=== PATIENT | female | born 1940 | race Caucasian/White ===

== ENCOUNTER → 2016-03-25 | Outpatient (CLI) | payer BC ==
[~2016-03-25] MED LIST: ASPEC81 PO; LPT40 PO; LSN20 PO; NTRSLP4 SL; PLV75 PO; TPRSR25 PO
[2016-03-25 12:15] LABS: BASO % 0.2 %; BASO ABS # 0.02 K/uL (0-0.2); COMPLETE YES; EOS % 2.5 %; HEMATOCRIT 37.9 % (37-47); IG% 0.2 %; LYMPH % 32.8 %; LYMPH ABS # 2.67 K/uL (1.2-3.4); MEAN CELL VOLUME 93.8 fL (80-100); MEAN CORPUSCULAR HEMOGLOBIN 31.4 pg (25-34); MEAN CORPUSCULAR HGB CONC 33.5 g/dl (32-36); MEAN PLATELET VOLUME 9.7 fL (7.4-10.4); MONO % 6.9 %; NEUT % 57.4 %; PLATELET COUNT 257 K/uL (130-400); RED BLOOD COUNT 4.04 M/uL (4.2-5.4); WHITE BLOOD COUNT 8.14 K/uL (4.8-10.8)
[2016-03-25 12:28] LABS: ALT/SGPT 20 U/L (12-78); BLOOD UREA NITROGEN 19 mg/dl (7-18); BUN/CREATININE RATIO 26.4 (10-20); CALCIUM 9.1 mg/dl (8.5-10.1); CARBON DIOXIDE 24 mmol/L (21-32); CHLORIDE 109 mmol/L (98-107); CHOLESTEROL 171 mg/dl (0-200); CREATININE 0.72 mg/dl (0.60-1.20); GLUCOSE 91 mg/dl (70-99); POTASSIUM 4.3 mmol/L (3.5-5.1); SODIUM 144 mmol/L (136-145)
[2016-03-25 12:38] LABS: ALB/GLOB RATIO 1.1 (0.9-2); ALKALINE PHOSPHATASE 97 U/L (45-117); AST/SGOT 14 U/L (15-37); CHOLESTEROL/HDL RATIO 2.9; HDL CHOLESTEROL 58 mg/dl; LDL CHOLESTEROL CALCULATED 97 mg/dl; TRIGLYCERIDES 78 mg/dl (0-150); VERY LOW DENSITY LIPOPROT CALC 16 mg/dl
== END | disposition home or self-care (01) ==
LOC: C.LAB1850 10:20
PROVIDERS: ATTEND Internal Medicine Cardiovascular Disease
DX: I10 Essential (primary) hypertension (principal)

== ENCOUNTER → 2016-04-29 | Outpatient (CLI) | payer BC | END | disposition home or self-care (01) | LOC: C.PAPS 09:58 | PROVIDERS: ATTEND Obstetrics & Gynecology | DX: Z01.419 Encounter for gynecological examination (general) (routine) without abnormal findings (principal); Z78.0 Asymptomatic menopausal state; N95.2 Postmenopausal atrophic vaginitis ==

== ENCOUNTER → 2017-05-10 | Outpatient (CLI) | payer BC ==
[2017-05-10 09:28] LABS: BASO % 0.5 %; BASO ABS # 0.04 K/uL (0-0.2); EOS % 2.4 %; EOS ABS # 0.19 K/uL (0-0.5); HEMATOCRIT 36.1 % (37-47); HEMOGLOBIN 12.1 g/dL (12.0-16.0); IG# 0.04 K/uL (0.00-0.02); LYMPH % 37.7 %; LYMPH ABS # 2.99 K/uL (1.2-3.4); MEAN CELL VOLUME 93.3 fL (80-100); MEAN CORPUSCULAR HEMOGLOBIN 31.3 pg (25-34); MEAN CORPUSCULAR HGB CONC 33.5 g/dl (32-36); MEAN PLATELET VOLUME 9.2 fL (7.4-10.4); MONO % 6.9 %; MONO ABS # 0.55 K/uL (0.11-0.59); NEUT ABS # 4.12 K/uL (1.4-6.5); PLATELET COUNT 321 K/uL (130-400); RED CELL DISTRIBUTION WIDTH CV 14.6 % (11.5-14.5); RED CELL DISTRIBUTION WIDTH SD 49.4 fL (36.4-46.3); WHITE BLOOD COUNT 7.93 K/uL (4.8-10.8)
[2017-05-10 09:47] LABS: ALBUMIN 3.4 gm/dl (3.4-5.0); ALT/SGPT 28 U/L (12-78); AST/SGOT 21 U/L (15-37); BLOOD UREA NITROGEN 25 mg/dl (7-18); CALCIUM 8.6 mg/dl (8.5-10.1); CARBON DIOXIDE 25 mmol/L (21-32); GLUCOSE 94 mg/dl (70-99); POTASSIUM 3.8 mmol/L (3.5-5.1); SODIUM 140 mmol/L (136-145)
[2017-05-10 09:58] LABS: ALKALINE PHOSPHATASE 115 U/L (45-117); CHOLESTEROL 146 mg/dl (0-200); LDL CHOLESTEROL CALCULATED 61 mg/dl
== END | disposition home or self-care (01) ==
LOC: C.LAB1850 08:12
PROVIDERS: ATTEND Internal Medicine Cardiovascular Disease
DX: E78.5 Hyperlipidemia, unspecified (principal); I65.29 Occlusion and stenosis of unspecified carotid artery; I25.10 Atherosclerotic heart disease of native coronary artery without angina pectoris; Z95.5 Presence of coronary angioplasty implant and graft; I10 Essential (primary) hypertension